=== PATIENT | female | born 2000 | race Caucasian/White ===

== ENCOUNTER 2019-07-11 22:30 | Emergency (ER) | payer BC ==
[2019-07-11 23:19] LABS: Bilirubin Negative (Negative); Blood, Urine Negative (Negative); Clarity Clear (Clear); Glucose, Urine (Dipstick) Normal (Negative); Leukocyte Negative Leu/uL (Negative); Nitrite Negative (Negative); Protein, Urine (Dipstick) Negative (Neg-Trace); Urobilinogen Normal mg/dL (Less than 2)
[2019-07-11 23:22] LABS: Pregnancy Test - Urine (BHCG) Negative (Negative); Pregu Control Background? CLEAR/WHITE (CLR/WHITE); Pregu Control Bar Appear? YES (CONTROL BAR); Specific Gravity 1.023 (1.002-1.036)
[2019-07-12 01:26] LABS: #Basophils 0.1 thou/uL (0.0-0.2); #Eosinphils 0.1 thou/uL (0.0-0.7); #Lymphocytes 2.1 thou/uL (1.20-3.40); #Monocytes 0.6 thou/uL (0.11-0.59); #Neutrophils 2.5 thou/uL (1.40-6.50); %Basophils 1.1 % (0.0-1.0); %Eosinophils 1.4 % (0.0-10.0); %Lymphocytes 39.3 % (28.0-48.0); %Monocytes 11.6 % (0.0-4.0); %Neutrophils 46.7 % (31.0-61.0); Hemoglobin 13.8 g/dL (12.0-16.0); Mean Corpuscular Hemoglobin 28.3 pg (25.0-35.0); Mean Corpuscular Volume 83.3 fL (78.0-98.0); Mean Platelet Volume 8.4 fL (7.4-10.4); Platelet Count 245 thou/uL (130-400); RBC Distribution Width 11.5 % (11.5-14.5); Red Blood Cell (RBC) Count 4.89 mill/uL (4.00-5.20); White Blood Cell (WBC) Count 5.4 thou/uL (4.8-10.8)
[2019-07-12 01:50] LABS: ALT (SGPT) 21 U/L (8-55); AST (SGOT) 18 U/L (5-34); Albumin 4.8 g/dL (3.5-5.0); Alkaline Phosphatase 69 U/L (40-100); Anion Gap 12 mmol/L (10-20); BUN (Urea Nitrogen) 16 mg/dL (7.0-18.7); Bilirubin, Total 0.7 mg/dL (0.2-1.2); Calc. Creatinine Clearance 0 mL/min (70-130); Carbon Dioxide 24 mmol/L (22-29); Chloride 110 mmol/L (98-107); Estimated GFR-MDRD Greater than 90; Globulin 2.8 g/dL (2.4-3.5); Glucose 96 mg/dL (70-105); Lipase 25 U/L (8-78); Potassium 4.1 mmol/L (3.5-5.1); Protein, Total 7.6 g/dL (6.0-8.3); Sodium 142 mmol/L (136-145)
[2019-07-12 02:20] LABS: Thyroid Stimulating Hormone 3.5295 uIU/mL (0.35-4.94)
[2019-07-12 04:12] LABS: T4 9.1 ug/dL (4.87-11.72)
== END 2019-07-12 04:54 | disposition home or self-care (01) ==
LOC: ERS 22:30
DX: E86.0 Dehydration (principal); F31.81 Bipolar II disorder; F17.290 Nicotine dependence, other tobacco product, uncomplicated; Z79.899 Other long term (current) drug therapy
CPT/HCPCS: 36415; 80053; 81003; 81025; 83690; 84436; 84443; 85025; 96360

== ENCOUNTER 2019-08-16 07:36 | Outpatient (CLI) | payer BC ==
--- NOTE | 2019-08-16 13:14 | NM ---
HEPATOBILIARY SCAN: HISTORY: Epigastric pain. Abdominal bloating and nausea. RADIOPHARMACEUTICAL: Technetium 99m mebrofenin 5.3 millicuries injected intravenously. FINDINGS: There is good tracer extraction by the liver with prompt excretion into the biliary tract and small b owel loops and normal filling of the gallbladder. The calculated gallbladder ejection fraction following an oral fatty meal measures 25%. IMPRESSION: Chronic cholecystitis/gallbladder dyskinesia. POS: OFF
== END 2019-08-16 07:37 | disposition home or self-care (01) ==
LOC: NM 07:36
PROVIDERS: ATTEND Internal Medicine Gastroenterology
DX: R10.13 Epigastric pain (principal)
CPT/HCPCS: 78227; A9537

== ENCOUNTER 2019-09-23 10:10 | Day surgery (SDC) | payer BC ==
[2019-09-22 08:35] VITALS: BMI 28.3
[2019-09-23 10:52] LABS: #Basophils 0.1 thou/uL (0.0-0.2); #Eosinphils 0.1 thou/uL (0.0-0.7); #Lymphocytes 1.7 thou/uL (1.20-3.40); #Monocytes 0.7 thou/uL (0.11-0.59); %Basophils 1.1 % (0.0-1.0); %Eosinophils 1.5 % (0.0-10.0); %Monocytes 10.1 % (0.0-4.0); %Neutrophils 61.3 % (31.0-61.0); Hemoglobin 14.9 g/dL (12.0-16.0); Mean Corpuscular HGB CONC 32.6 g/dL (32.0-36.0); Mean Corpuscular Hemoglobin 27.3 pg (25.0-35.0); Mean Corpuscular Volume 83.7 fL (78.0-98.0); Mean Platelet Volume 8.4 fL (7.4-10.4); Platelet Count 297 thou/uL (130-400); Red Blood Cell (RBC) Count 5.44 mill/uL (4.00-5.20); White Blood Cell (WBC) Count 6.5 thou/uL (4.8-10.8)
[2019-09-23] MEDS ORDERED: Ondansetron PF 4 MG/2 ML Vial ONE (10:59)
[2019-09-23] MEDS ORDERED: Lidocaine 1% PF 5 ML VIAL ONE (10:59)
[2019-09-23] MEDS ORDERED: Glycopyrrolate 0.2 MG/ML 5 ML SYRINGE ONE (10:59)
[2019-09-23] MEDS ORDERED: Rocuronium Bromide 10 MG/ML (10ML VIAL) ONE (10:59)
[2019-09-23] MEDS ORDERED: PROPOFOL 200 MG/20 ML VIAL ONE (10:59)
[2019-09-23] MEDS ORDERED: Dexamethasone 20 MG/5 ML VIAL ONE (10:59)
[2019-09-23 11:18] LABS: ALT (SGPT) 9 U/L (8-55); AST (SGOT) 15 U/L (5-34); Alkaline Phosphatase 76 U/L (40-100); Anion Gap 12 mmol/L (10-20); BUN (Urea Nitrogen) 11 mg/dL (7.0-18.7); Bilirubin, Total 0.8 mg/dL (0.2-1.2); Calc. Creatinine Clearance 132 mL/min (70-130); Calcium 10.1 mg/dL (7.8-10.44); Carbon Dioxide 28 mmol/L (22-29); Chloride 106 mmol/L (98-107); Estimated GFR-MDRD 88; Globulin 2.8 g/dL (2.4-3.5); Glucose 94 mg/dL (70-105); Potassium 4.3 mmol/L (3.5-5.1); Protein, Total 7.8 g/dL (6.0-8.3); Sodium 142 mmol/L (136-145)
[2019-09-23] MEDS ORDERED: Acetaminophen 500 MG TAB ONE (11:28)
[2019-09-23] MEDS ORDERED: Ketorolac Tromethamine 30 MG/ML VIAL ONE (11:28)
[2019-09-23] MEDS ORDERED: Lidocaine 1% w/Epinephrine 1:100K 20 ML VIAL ONE (11:40)
[2019-09-23] MEDS ORDERED: Bupivacaine 0.25% HCL 30 ML VIAL ONE (11:40)
[2019-09-23] MEDS ORDERED: Fentanyl 100 MCG/2 ML VIAL ONE ×2 (12:57→13:23)
[2019-09-23] MEDS ORDERED: HYDROcodone/Acetaminophen 5/325 mg Tablet ONE (15:31)
--- NOTE | 2019-09-23 16:43 | OP ---
DATE OF PROCEDURE: 09/23/2019 PREOPERATIVE DIAGNOSIS: Biliary dyskinesia. POSTOPERATIVE DIAGNOSIS: Biliary dyskinesia. PROCEDURE PERFORMED: Laparoscopic cholecystectomy. ANESTHESIA: General endotracheal. INDICATIONS FOR PROCEDURE: The patient is a 19-year-old white female, who presents with persistent right upper quadrant abdominal pain. Her gallbladder ultrasound was negative, but her HIDA scan revealed a low ejection fraction with reproduction of symptoms. Laparoscopic cholecystectomy was recommended for treatment of her biliary dyskinesia. DESCRIPTION OF PROCEDURE: Informed consent was obtained. The patient was taken to the operating room where general endotracheal anesthesia was obtained with the patient in the supine position. The abdomen was prepped with Betadine and draped in the usual sterile fashion. 0.25% Marcaine with epinephrine was infiltrated below the umbilicus and a 10 mm infraumbilical incision was created. A Veress needle was passed through this incision into the peritoneal cavity. A pneumoperitoneum was established using carbon dioxide up to a pressure of 15 mmHg. Local anesthetic was infiltrated and 3 additional 5 mm right upper quadrant incisions were created. Through the mid incision, a 5 mm port was passed into the peritoneal cavity. The camera was passed through this port and under direct vision, an 11 port was passed through the infraumbilical incision. The camera was replaced through this port, and under direct vision, 2 additional 5 mm ports were passed through the incisions already created. The gallbladder was grasped and retracted in a cephalad direction. Minimal adhesions were bluntly stripped away from the apex of the gallbladder, and the apex was retracted laterally and inferiorly. Careful dissection was carried out to the apex of the gallbladder to identify the cystic duct and cystic artery. These were each carefully dissected circumferentially. The duct was of normal caliber. Both the duct and the artery were divided between clips, leaving 2 on the side to remain within the abdomen. The gallbladder was then dissected out of the gallbladder fossa using electrocautery and removed through the infraumbilical port site. The fascia was closed with 0 Vicryl suture and a GraNee needle. The right upper quadrant was inspected and irrigated. All irrigant was aspirated. All ports and instruments were removed under direct vision. Pneumoperitoneum was carefully evacuated. Additional local anesthetic was infiltrated into each port site. The skin edges were approximated with 4-0 Monocryl subcuticular sutures, and Dermabond was placed externally. There were no complications. The patient tolerated the procedure well and was taken to the recovery room in stable condition. FINDINGS: The patient's gallbladder was unremarkable. There was no thickening or inflammation. There were no adhesions. The duct and artery were small and noninflamed. Cholangiogram was not obtained. Preoperative liver function tests were within normal limits. The operation was performed with no complications and essentially no blood loss. The patient tolerated the procedure well and was taken to recovery room in stable condition. Job ID: [id number]
== END 2019-09-23 15:48 | disposition home or self-care (01) ==
LOC: SDC 10:10
PROVIDERS: ATTEND Specialist
PROC: 0FT44ZZ Resection of Gallbladder, Percutaneous Endoscopic Approach (ICD-10-PCS; principal; 2019-09-23)
DX: K82.8 Other specified diseases of gallbladder (principal); K81.1 Chronic cholecystitis; Z79.899 Other long term (current) drug therapy
CPT/HCPCS: 36415; 80053; 85025; 88304; J0690; J1100; J1885; J2001; J2405; J2704; J3010; S0020

== ENCOUNTER 2020-05-10 16:04 | Outpatient (CLI) | payer BC ==
--- NOTE | 2020-05-10 16:43 | RAD ---
Right knee 4 views: 05/10/2020 COMPARISON: None HISTORY: Joint pain FINDINGS: No fracture or dislocation. No radiopaque foreign body or subcutaneous gas. No knee joint e ffusion. IMPRESSION: No acute findings.
--- NOTE | 2020-05-10 16:43 | RAD ---
Exam: XR Knee Lt 4 View STANDARD HISTORY: Joint pain. COMPARISON: None FINDINGS: No acute fracture, dislocation, or other acute osseous abnormality is identified. IMPRESSION: No acute osseous abnormality is identified.
--- NOTE | 2020-05-10 16:43 | RAD ---
Exam: XR Hip Lt 2-3 View HISTORY: Joint pain. COMPARISON: None FINDINGS: No acute fracture, dislocation, or other acute osseous abnormality is identified. A T-shaped intrauterine contraceptive device overlies the pelvis. IMPRESSION: No acute osseous abnormality is identified.
--- NOTE | 2020-05-10 16:44 | RAD ---
3 views left wrist: 05/10/2020 COMPARISON: None HISTORY: Pain FINDINGS: No widening of the scapholunate interval. Radiocarpal joint appears grossly unremarkable. N o displaced fracture or dislocation. No erosive changes are noted. Alignment appears normal on the lateral view. IMPRESSION: No acute findings.
--- NOTE | 2020-05-10 16:45 | RAD ---
Exam:2 views right hip HISTORY: Pain. COMPARISON: None FINDINGS: Right hip joint space is preserved. Contour of the femoral head is maintained. No fracture. Visualized bony pelvis and sacrum are intact. Intrauterine device is noted. IMPRESSION: No significant degenerative change of the right hip. No fracture.
--- NOTE | 2020-05-10 16:45 | RAD ---
Exam: XR Wrist 3 Rt View STANDARD HISTORY: Joint pain. Right wrist pain. COMPARISON: None FINDINGS: No acute fracture, dislocation, or other acute osseous abnormality is identified. IMPRESSION: No acute osseous abnormality is identified. If patient's symptoms persist, follow-up imaging is advis ed.
== END 2020-05-10 16:05 | disposition home or self-care (01) ==
LOC: BICRAD 16:04
PROVIDERS: ATTEND Internal Medicine
DX: M25.532 Pain in left wrist (principal); M25.531 Pain in right wrist; M25.562 Pain in left knee; M25.561 Pain in right knee; M25.552 Pain in left hip; M25.551 Pain in right hip